=== PATIENT | male | born 1960 | race Caucasian/White ===

== ENCOUNTER 2018-09-10 11:05 | Inpatient (IN) | payer SELFPAY ==
[~2018-09-10] VITALS: Ht 167.6 cm; Wt 64.9 kg
[2018-09-10] MEDS ORDERED: LORAZEPAM 0.5MG TABLET PO ONE (11:30)
[2018-09-10] MEDS ORDERED: ASPIRIN 81MG TABLET PO ONE (13:00)
[2018-09-10] MEDS ORDERED: NITROGLYCERIN 0.4MG TABLET SL SL PRN ×2 (13:00→17:00)
[2018-09-10 13:33] LABS: BASOPHILS % 0.4 % (0.0-2.0); EOSINOPHILS % 0.8 % (0.0-5.0); HEMATOCRIT. 43.8 % (42.0-52.0); LYMPHOCYTES % 31.1 % (20.0-50.0); MEAN CORPUSCULAR HEMOGLOBIN 30.2 pg (28.0-32.0); MEAN CORPUSCULAR VOLUME 88.3 fL (80.0-94.0); MEAN PLATELET VOLUME 7.6 fl (7.4-10.4); MONOCYTES % 5.8 % (2.0-8.0); NEUTROPHILS % 61.9 % (40.0-76.0); PLATELET 242 x1000/uL (130-400); RED BLOOD CELL COUNT 4.96 mill/uL (4.7-6.1); RED CELL DISTRIBUTION WIDTH 14.4 % (11.6-14.6)
[2018-09-10 13:35] LABS: CHLORIDE 103 mEq/L (98-107)
[2018-09-10 13:38] LABS: D-DIMER 0.24 mg/L FEU (<0.50); INR 1.1; PARTIAL THROMBOPLASTIN TIME 27.2 sec (23.4-31.0); PROTHROMBIN TIME 11.1 sec (9.1-11.1)
[2018-09-10] MEDS ORDERED: POTASSIUM CHLORIDE 20MEQ TABLET SR PO ONE (15:00)
[2018-09-10] MEDS ORDERED: GUAIFENESIN 200MG/10ML SUGAR FREE UDC PO PRN (17:00)
[2018-09-10] MEDS ORDERED: DIPHENHYDRAMINE 50MG/ML VIAL IV PRN (17:00)
[2018-09-10] MEDS ORDERED: MAGNESIUM/ALUMINUM HYDROXIDE/SIMETHICONE 30ML UDC PO PRN (17:00)
[2018-09-10] MEDS ORDERED: ONDANSETRON HCL 4MG/2ML INJ IV PRN (17:00)
[2018-09-10] MEDS ORDERED: LORAZEPAM 0.5MG TABLET PO PRN (17:00)
[2018-09-10] MEDS ORDERED: KETOROLAC 15MG/ML VIAL IV PRN (17:00)
[2018-09-10] MEDS ORDERED: DOCUSATE SODIUM 100MG CAPSULE PO PRN (17:00)
[2018-09-10] MEDS ORDERED: IPRATROPIUM/ALBUTEROL 0.5-3(2.5)MG/3ML NEB INH PRN (17:00)
[2018-09-10] MEDS ORDERED: ACETAMINOPHEN 325MG TABLET PO PRN (17:00)
[2018-09-10] MEDS ORDERED: NA PHOS,M-B/NA PHOS,DI-BA ENEMA 118ML PR PRN (17:00)
[2018-09-10] MEDS ORDERED: DEXTROSE 50% WATER 50ML SYRINGE IV PRN (20:15)
[2018-09-10] MEDS: BLOOD SUGAR DIAGNOSTIC STRIP TEST SCH (21:00)
[2018-09-10] MEDS ORDERED: ZOLPIDEM TARTRATE 5MG TABLET PO PRN (21:00)
[2018-09-10] MEDS ORDERED: ENOXAPARIN 40MG/0.4ML SYR SUBCUT SCH (21:15)
[2018-09-10] MEDS ORDERED: DIPHENHYDRAMINE 25MG CAPSULE PO PRN (21:30)
[2018-09-10] MEDS: METOPROLOL TARTRATE 25MG TABLET PO SCH (21:49)
[2018-09-10] MEDS: FAMOTIDINE 20MG TABLET PO SCH (21:57)
[2018-09-10 22:30] VITALS: BP 191/121
[2018-09-10] MEDS: CLONIDINE 0.1MG TABLET PO PRN (22:51)
[2018-09-10] MEDS: INSULIN LISPRO 100 UNITS/ML SUBCUT SCH (22:55)
[2018-09-11] VITALS: BP 157/107
[2018-09-11 01:03] LABS: CREATINE KINASE 266 IU/L (39-308); CREATINE KINASE MB FRACTION 4.8 ng/mL (0.5-3.6)
[2018-09-11] MEDS: CLONIDINE 0.1MG TABLET PO PRN (02:36)
[2018-09-11 04:00] VITALS: BP 98/68
[2018-09-11 07:34] LABS: CREATINE KINASE 313 IU/L (39-308); CREATINE KINASE MB FRACTION 6.1 ng/mL (0.5-3.6)
[2018-09-11] MEDS: BLOOD SUGAR DIAGNOSTIC STRIP TEST SCH ×2 (07:40→12:40)
[2018-09-11 08:00] VITALS: BP 107/85
[2018-09-11] MEDS: INSULIN LISPRO 100 UNITS/ML SUBCUT SCH ×2 (08:10→12:57)
[2018-09-11] MEDS: METOPROLOL TARTRATE 25MG TABLET PO SCH (08:47)
[2018-09-11] MEDS: FAMOTIDINE 20MG TABLET PO SCH (08:47)
[2018-09-11] MEDS ORDERED: ASPIRIN 325MG EC TABLET PO SCH (09:00)
[2018-09-11 12:00] VITALS: BP 134/89
== END 2018-09-11 12:50 | disposition home or self-care (01) | DRG 203 ==
LOC: ER 13:36 → EDBEDREQ 15:39 → ENRESERV 20:20 → 7WST 21:10
PROVIDERS: ADMIT Internal Medicine; ATTEND Internal Medicine
DX: R07.89 Other chest pain (principal); E11.9 Type 2 diabetes mellitus without complications; E78.00 Pure hypercholesterolemia, unspecified; I10 Essential (primary) hypertension; E87.6 Hypokalemia; F41.0 Panic disorder [episodic paroxysmal anxiety]
CPT/HCPCS: 36415; 71045; 80061; 82550; 82553; 82962; 83036; 83880; 84484; 85379; 93005; 93970; 99285; J1650; J1815; J1885